=== PATIENT | female | born 1950 | race Asian ===

== ENCOUNTER 2021-05-05 10:00 | Emergency (ER) | payer OTHER ==
[~2021-05-05] VITALS: Ht 160 cm; Wt 49.9 kg
--- NOTE | 2021-05-05 10:00 | NUR ---
PT BIB SELF C/O FORE HEAD RASHES X 1 MONTH. PT IS AAOX4, NOT IN RESPIRATORY DISTRESS, V/S STABLE, KEPT RESTED AND COMFORTABLE. WILL CONTINUE TO MONITOR.
--- NOTE | 2021-05-05 10:41 | NUR ---
SEEN AND EXAMINED BY .
[2021-05-05] MEDS ORDERED: IBUPROFEN 600 MG TABLET ONE (10:45)
--- NOTE | 2021-05-05 10:50 | NUR ---
WOUND CULTURE OBTAINED AND SENT TO LAB.
[2021-05-05] MEDS ORDERED: IBUPROFEN 600 MG TABLET PO ONE (11:00)
--- NOTE | 2021-05-05 11:02 | NUR ---
ER PHLEB AT BEDSIDE FOR BLOOD DRAW.
[2021-05-05 13:01] LABS: ALBUMIN 3.5 g/dL (3.4-5.0); BILIRUBIN,TOTAL 0.6 mg/dL (0.2-1.0); CALCIUM, SERUM 8.9 mg/dL (8.5-10.1); CREATININE 0.6 mg/dL (0.6-1.3); TOTAL PROTEIN, SERUM 7.8 g/dL (6.4-8.2)
[2021-05-05 13:15] LABS: POTASSIUM 3.8 mmol/L (3.5-5.1)
[2021-05-05 13:30] LABS: BASOPHILS # (AUTO) 0.1 K/uL (0.0-0.2); BASOPHILS % (AUTO) 0.6 % (0.0-2.0); EOSINOPHILS % (AUTO) 2.6 % (0.0-6.0); HEMATOCRIT 39 % (33-45); HEMOGLOBIN 12.5 g/dL (11.5-14.8); LYMPHOCYTES # (AUTO) 2.4 K/uL (0.8-4.8); MEAN CORPUSCULAR HGB CONC 32 g/dl (31.0-36.0); MEAN CORPUSCULAR VOLUME 85 fL (82-100); MONOCYTES # (AUTO) 0.4 K/uL (0.1-1.30); MONOCYTES % (AUTO) 5.2 % (2.0-12.0); NEUTROPHILS # (AUTO) 5.2 K/uL (1.8-8.9); NEUTROPHILS % (AUTO) 62.6 % (43.0-81.0); PLATELET COUNT (AUTO) 300 K/uL (150-450); WHITE BLOOD COUNT (AUTO) 8.3 K/uL (4.3-11.0)
[2021-05-05] MEDS ORDERED: ITRA100C2 PO (14:01)
[2021-05-05] MEDS ORDERED: SULF-11 PO (14:01)
[2021-05-05 14:12] VITALS: BP 120/68
--- NOTE | 2021-05-05 14:12 | NUR ---
Patient discharged to home in stable condition. Written and verbal after care instructions given. Patient verbalizes understanding of instruction.
[2021-05-06] MEDS ORDERED: TERB250T53 PO (14:32)
== END 2021-05-05 14:13 | disposition home or self-care (01) ==
LOC: ER 10:10
DX: B35.0 Tinea barbae and tinea capitis (principal); L02.811 Cutaneous abscess of head [any part, except face]; Z79.899 Other long term (current) drug therapy
CPT/HCPCS: 36415; 80053-TC; 85025-TC; 87070-TC

== ENCOUNTER 2021-05-12 13:24 | Emergency (ER) | payer OTHER ==
[~2021-05-12] VITALS: Ht 162.6 cm; Wt 49.9 kg
[~2021-05-12 13:24] MED LIST: ITRA100C2 PO; SULF-11 PO; TERB250T53 PO
[2021-05-12 13:40] VITALS: BP 107/72
[2021-05-12] MEDS ORDERED: HYDR453.3 TP (14:11)
--- NOTE | 2021-05-12 14:16 | NUR ---
Patient discharged to home in stable condition. Written and verbal after care instructions given. Patient verbalizes understanding of instruction.
== END 2021-05-12 14:16 | disposition home or self-care (01) ==
LOC: ER 13:51
DX: L23.89 Allergic contact dermatitis due to other agents (principal); Z79.52 Long term (current) use of systemic steroids; Z79.899 Other long term (current) drug therapy